=== PATIENT | female | born 1955 | race African-American/Black ===

== ENCOUNTER 2018-05-21 13:50 | Emergency (ER) | payer MEDICARE, OTHER ==
[~2018-05-21] VITALS: Ht 165.1 cm; Wt 84.0 kg
[~2018-05-21 13:50] MED LIST: DIFL5DRO BOTHEYE; ENAL20TA PO; GLIP5TAB12 PO; KETO1DRO BOTHEYE; MAX PO; METF-414 PO; OMEP20CA10 PO; VIGAMX BOTHEYE
[2018-05-21 16:01] VITALS: BP 138/97
== END 2018-05-21 16:02 | disposition home or self-care (01) ==
LOC: ER 15:47
DX: M17.11 Unilateral primary osteoarthritis, right knee (principal); M25.561 Pain in right knee; I10 Essential (primary) hypertension; H40.9 Unspecified glaucoma; Z88.0 Allergy status to penicillin; Z91.040 Latex allergy status; Z88.6 Allergy status to analgesic agent; Z79.899 Other long term (current) drug therapy; Z90.89 Acquired absence of other organs; Z98.890 Other specified postprocedural states
CPT/HCPCS: 73562; 99283